=== PATIENT | female | born 1955 | race Two or more races ===

== ENCOUNTER 2017-12-14 17:06 | Emergency (ER) | payer OTHER ==
[~2017-12-14] VITALS: Ht 160 cm; Wt 93.4 kg
[~2017-12-14 17:06] MED LIST: ANTIVERT12.5 MG PO; CYMBALTA60 MG PO; LIPITOR20 MG PO; PREDNISONE10 MG PO; SINGULAIR 10MG10 MG PO
== END 2017-12-14 22:27 | disposition home or self-care (01) ==
LOC: ER 17:06
DX: R42 Dizziness and giddiness (principal)

== ENCOUNTER 2018-08-12 11:46 | Emergency (ER) | payer OTHER ==
[~2018-08-12] VITALS: Ht 165.1 cm; Wt 102.1 kg
[2018-08-12] MEDS ORDERED: ZANAFLEX4 M1 (13:12)
[2018-08-12] MEDS ORDERED: HYZAAR 50-12.51 EACH (13:13)
[2018-08-12] MEDS ORDERED: FASENRA30 MG/1 ML (13:13)
[2018-08-12] MEDS ORDERED: ZOCOR20 MG (13:14)
== END 2018-08-12 20:11 | disposition home or self-care (01) ==
LOC: ER 11:46
DX: K57.90 Diverticulosis of intestine, part unspecified, without perforation or abscess without bleeding (principal); N83.292 Other ovarian cyst, left side; N83.291 Other ovarian cyst, right side

== ENCOUNTER 2019-05-06 13:30 | Emergency (ER) | payer OTHER ==
[~2019-05-06] VITALS: Ht 165.1 cm; Wt 93.0 kg
[~2019-05-06 13:30] MED LIST changes: +FASENRA30 MG/1 ML; +HYZAAR 50-12.51 EACH; +ZANAFLEX4 M1; +ZOCOR20 MG
== END 2019-05-06 18:36 | disposition home or self-care (01) ==
LOC: ER 13:30
DX: K59.09 Other constipation (principal)

== ENCOUNTER 2019-08-18 18:58 | Emergency (ER) | payer OTHER ==
[~2019-08-18] VITALS: Ht 165.1 cm; Wt 97.5 kg
[2019-08-18] MEDS ORDERED: FOSAMAX70 MG PO (19:11)
== END 2019-08-18 23:27 | disposition home or self-care (01) ==
LOC: ER 18:58
DX: R42 Dizziness and giddiness (principal)

== ENCOUNTER 2019-08-22 10:26 | Emergency (ER) | payer OTHER ==
[~2019-08-22] VITALS: Ht 154.9 cm; Wt 99.8 kg
[~2019-08-22 10:26] MED LIST changes: +FOSAMAX70 MG PO
== END 2019-08-22 14:16 | disposition home or self-care (01) ==
LOC: ER 10:26
DX: R42 Dizziness and giddiness (principal)

== ENCOUNTER 2021-02-10 13:35 | Emergency (ER) | payer OTHER ==
[~2021-02-10] VITALS: Ht 165.1 cm; Wt 97.5 kg
[2021-02-10] MEDS ORDERED: DICLOFENAC POTA50 MG PO (14:03)
[2021-02-10] MEDS ORDERED: PEPCID AC20 MG PO (17:49)
[2021-02-10] MEDS ORDERED: ZITHROMAX500 MG PO (17:49)
[2021-02-10] MEDS ORDERED: INTESTINEX680 M1 PO (17:49)
== END 2021-02-10 17:52 | disposition home or self-care (01) ==
LOC: ER 13:35
DX: R42 Dizziness and giddiness (principal); B96.0 Mycoplasma pneumoniae [M. pneumoniae] as the cause of diseases classified elsewhere; G44.89 Other headache syndrome